=== PATIENT | male | born 1995 | race Caucasian/White ===

== ENCOUNTER 2021-11-15 15:25 | Emergency (ER) | payer BC, OTHER ==
[2021-11-15] MEDS ORDERED: Lidocaine 1% PF 5 ML VIAL ONE (16:03)
[2021-11-15] MEDS ORDERED: Bacitracin 1 PK ONE (16:03)
[2021-11-15] MEDS ORDERED: Lidocaine 2% 20 ml MDV ONE (16:17)
== END 2021-11-15 17:50 | disposition home or self-care (01) ==
LOC: MADERS 15:25
DX: S71.112A Laceration without foreign body, left thigh, initial encounter (principal); I10 Essential (primary) hypertension; W20.8XXA Other cause of strike by thrown, projected or falling object, initial encounter
CPT/HCPCS: 12001